=== PATIENT | male | born 1995 | race American Indian/Alaskan Native ===

== ENCOUNTER 2018-12-13 18:09 | Emergency (ER) | payer SELFPAY ==
[2018-12-13 18:47] VITALS: BP 134/77
--- NOTE | 2018-12-13 18:47 | Event Note ---
ED Screening Note Date of service: 12/13/18 Time: 18:46 ED Screening Note: This is a 23 y.o. M. that presents to the ER with left ear pain and muffled hearing x 1 week. This initial assessment/diagnostic orders/clinical plan/treatment(s) is/are subject to change based on patients health status, clinical progression and re- assessment by fellow clinical providers in the ED. Further treatment and workup at subsequent clinical providers discretion. Patient/guardian urged not to elope from the ED as their condition may be serious if not clinically assessed and managed. Initial orders include: There is a foreign object (appear to be a bug) that need to be removed.
--- NOTE | 2018-12-13 20:39 | Emergency Department Report ---
ED ENT HPI - General Chief complaint: Earache Stated complaint: LFT EAR PAIN Time Seen by Provider: 12/13/18 18:44 Source: patient Mode of arrival: Ambulatory Limitations: No Limitations - History of Present Illness Initial comments: 23-year-old -[place] male presents to the emergency room complaining of intermittent left ear muscle sounds 1 week. Patient reports he thinks his Blood in his ear. Patient denies any drainage denies any pain at this moment. Patient has no past medical history currently takes no medications on a daily basis and has no known drug allergies. This is patient's first time being evaluated for this complaint. MD complaint: ear pain Onset/Timin -: week(s) Location: L ear Severity scale (0 -10): 0 Consistency: intermittent Associated Symptoms: denies: fever, cough, pain with swallowing, sore throat, discharge from ear, rhinorrhea - Related Data Allergies Allergy/AdvReac Type Severity Reaction Status Date / Time No Known Allergies Allergy Unverified 12/13/18 18:12 ED Dental HPI - General Chief complaint: Earache Stated complaint: LFT EAR PAIN Time Seen by Provider: 12/13/18 18:44 Source: patient Mode of arrival: Ambulatory Limitations: No Limitations - Related Data Allergies Allergy/AdvReac Type Severity Reaction Status Date / Time No Known Allergies Allergy Unverified 12/13/18 18:12 ED Review of Systems ROS: Stated complaint: LFT EAR PAIN Other details as noted in HPI Comment: All other systems reviewed and negative ED Past Medical Hx - Past Medical History Previous Medical History?: No - Surgical History Past Surgical History?: No - Social History Smoking Status: Never Smoker Substance Use Type: None ED Physical Exam - General Limitations: No Limitations General appearance: alert, in no apparent distress - Head Head exam: Present: atraumatic, normocephalic - Eye Eye exam: Present: normal appearance - ENT ENT exam: Present: mucous membranes moist, normal external ear exam - Neck Neck exam: Present: normal inspection - Neurological Exam Neurological exam: Present: normal gait - Psychiatric Psychiatric exam: Present: normal affect, normal mood - Skin Skin exam: Present: warm, dry, intact, normal color. Absent: rash ED Course Vital Signs 12/13/18 18:44 Temperature 98.3 F Pulse Rate 90 Respiratory 16 Rate Blood Pressure 134/77 [Left] O2 Sat by Pulse 100 Oximetry - Reevaluation(s) Reevaluation #1: 12/13/18 21:03 Patient left ear is clear to visualized tympanic membrane there is no signs of otitis media noted tympanic rupture. Patient reports that he seems to hear much better. - Ear Wax Removal Left Ear Cerumenolytic Used: 5-10% Sodium Bicarb solution Ear Canal Irrigated by: RN Ear Canal Irrigated With: warm saline with H2O2 using syringe/angiocath Results: Re-examined: cerumen removed completel TM Visible: TM(s) intact, normal appe Ear Canal: atraumatic Patient Tolerated Procedure: well Complications: no problems ED Medical Decision Making - Medical Decision Making 23-year-old -[place] male presents to the emergency room complaining of intermittent left ear muscle sounds 1 week. Patient reports he thinks his Blood in his ear. Patient denies any drainage denies any pain at this moment. Patient has no past medical history currently takes no medications on a daily basis and has no known drug allergies. This is patient's first time being evaluated for this complaint. Cerumen impaction complete patient is able to hear without muffled sound. Patient be discharged home in able condition Critical care attestation.: If time is entered above; I have spent that time in minutes in the direct care of this critically ill patient, excluding procedure time. ED Disposition Clinical Impression: Impacted cerumen, left ear Disposition: - TO HOME OR SELFCARE Is pt being admited?: No Does the pt Need Aspirin: No Condition: Stable Instructions: Cerumen Impaction (ED) Referrals: PRIMARY CARE, [Primary Care Provider] - 3-5 Days
== END 2018-12-13 21:23 | disposition home or self-care (01) ==
LOC: ED 18:09
DX: H61.22 Impacted cerumen, left ear (principal)